=== PATIENT | female | born 1955 | race Caucasian/White ===

== ENCOUNTER 2017-09-13 19:34 | Emergency (ER) | payer MEDICARE ==
[~2017-09-13] VITALS: Ht 172.7 cm; Wt 81.6 kg
--- NOTE | 2017-09-13 19:34 | NUR ---
PT BIBA#[id number] FROM [facility], PT STATES SHE WAS WALKING AND TRIPPED OVER A WHEEL. NO KO. VSS. NOTED WITH LAC ON FORHEAD WIHT MINIMAL BLEEDING
[2017-09-13] MEDS ORDERED: TDAP [DIPH/PERTUSSIS/TET] 0.5 ML VIAL IM ONE ×2 (20:00→20:37)
[2017-09-13] MEDS ORDERED: ACETAMINOPHEN ES 500 MG TABLET PO ONE (20:00)
[2017-09-13] MEDS ORDERED: ACETAMINOPHEN ES 500 MG TABLET ONE (20:37)
[2017-09-13 21:28] VITALS: BP 130/80
--- NOTE | 2017-09-13 21:28 | NUR ---
Patient discharged to home in stable condition. Written and verbal after care instructions given. Patient verbalizes understanding of instruction.
== END 2017-09-13 21:29 | disposition home or self-care (01) ==
LOC: ER 19:35
DX: S01.81XA Laceration without foreign body of other part of head, initial encounter (principal); M79.632 Pain in left forearm; M79.7 Fibromyalgia; Z88.0 Allergy status to penicillin; Z23 Encounter for immunization; W01.0XXA Fall on same level from slipping, tripping and stumbling without subsequent striking against object, initial encounter; Y93.01 Activity, walking, marching and hiking; Y92.89 Other specified places as the place of occurrence of the external cause; Y99.8 Other external cause status
CPT/HCPCS: 70450-TC; 73090-TC; 90715; A4606; A6402; Z7610

== ENCOUNTER 2017-09-19 14:23 | Emergency (ER) | payer MEDICARE, OTHER ==
[~2017-09-19] VITALS: Ht 172.7 cm; Wt 113.4 kg
[2017-09-19 14:30] VITALS: BP 151/93
== END 2017-09-19 15:23 | disposition home or self-care (01) ==
LOC: ER 14:28
DX: S01.81XD Laceration without foreign body of other part of head, subsequent encounter (principal); Z88.0 Allergy status to penicillin; X58.XXXD Exposure to other specified factors, subsequent encounter
CPT/HCPCS: 99281; A4606; Z7502; Z7610